=== PATIENT | female | born 1960 | race African-American/Black ===

== ENCOUNTER 2018-09-11 08:56 | Emergency (ER) | payer OTHER ==
[2018-09-11 09:04] VITALS: BP 158/89; PULSE 73; TEMP 98.5; BMI 37.9
--- NOTE | 2018-09-11 09:40 | PDOC ---
History of Present Illness - General Chief Complaint: Puncture Wound Stated Complaint: PAIN Time Seen by Provider: 09/11/18 09:06 History Source: Patient Exam Limitations: No Limitations Past History - Past Medical History Allergies/Adverse Reactions: Allergies Allergy/AdvReac Type Severity Reaction Status Date / Time No Known Allergies Allergy Verified 09/11/18 08:59 Home Medications: Ambulatory Orders Lisinopril [Prinivil -] 40 mg PO DAILY 08/06/12 Omeprazole [Prilosec (RX)] 20 mg PO DAILY 10/26/14 Linaclotide [Linzess] 145 mcg PO DAILY 12/08/14 Amlodipine Besylate [Norvasc -] 5 mg PO DAILY 12/09/14 Hydrochlorothiazide [Hctz -] 12.5 mg PO DAILY 12/09/14 Metoclopramide HCl [Reglan] 5 mg PO DAILY 12/09/14 Metoprolol Succinate [Toprol XL -] 50 mg PO DAILY 12/09/14 Pantoprazole Sodium [Protonix -] 40 mg PO DAILY 12/09/14 Sennosides/Docusate Sodium [Dok Plus Tablet] 1 each PO DAILY 12/09/14 Acetaminophen [Tylenol] 650 mg PO Q4H PRN #20 capsule 10/09/17 Polyethylene Glycol 3350 [Miralax (For Bowel Prep) -] 17 gm PO DAILY #1 bottle 10/09/17 COPD: No Diabetes: Yes (pre) GI Disorders: Yes (COLON POLYPS;GERD) HTN: Yes - Immunization History Immunization Up to Date: Yes - Suicide/Smoking/Psychosocial Hx Smoking Status: No Smoking History: Never smoked Number of Cigarettes Smoked Daily: 0 Information on smoking cessation initiated: No Hx Alcohol Use: No Drug/Substance Use Hx: No Substance Use Type: None *Physical Exam - Vital Signs Last Vital Signs Temp Pulse Resp BP Pulse Ox 98.5 F 73 16 158/89 100 09/11/18 09:00 09/11/18 09:00 09/11/18 09:00 09/11/18 09:00 09/11/18 09:00 - Physical Exam General Appearance: No: Apparent Distress Respiratory/Chest: positive: Lungs Clear, Normal Breath Sounds. negative: Respiratory Distress Cardiovascular: positive: Regular Rhythm, Regular Rate, S1, S2. negative: Murmur Gastrointestinal/Abdominal: positive: Normal Bowel Sounds, Soft. negative: Tender, Distended, Guarding, Rebound Musculoskeletal: negative: CVA Tenderness Extremity: positive: Other (small skin tear plantar surface of L foot, unable to feel any FB, no erythema, no fluctuance) Integumentary: positive: Normal Color Neurologic: positive: Alert, Normal Mood/Affect ED Treatment Course - LABORATORY CBC & Chemistry Diagram: 09/11/18 09:32 09/11/18 09:32 - RADIOLOGY Radiology Studies Ordered: Category Date Time Status FOOT-LEFT [RAD] Stat Radiology 09/11/18 09:13 Ordered Medical Decision Making - Medical Decision Making 57 y/o F hx of HTN, pre-DM, GERD presents with pain along bottom of L foot x 1 week after accidentally stepping on something in bathroom (patient was barefoot) . Also c/o generalized abd pain and 2 episodes of NBNB emesis from yesterday. Denies fever, sob, cp, diarrhea, urinary complaints. Currently not feeling nauseous. Generalized abd pain - current exam unremarkable, but will get labs and reassess ; IV Tylenol for pain L foot FB - L foot xray to r/o possible FB Signed out to ASHUTOSH Langley 09/11/18 09:37 *DC/Admit/Observation/Transfer Diagnosis at time of Disposition: Wound of left foot, Generalized abdominal pain - Referrals - Patient Instructions - Post Discharge Activity
[2018-09-11] MEDS ORDERED: ACETAMINOPHEN 1000 MG/100 ML VIAL (NON FORMULARY) IVPB ONE (09:41)
[2018-09-11 09:42] LABS: BASO % 1.2 % (0-2.0); EOS % 2.5 % (0-4.5); HEMATOCRIT 41.3 % (32.4-45.2); HEMOGLOBIN 14.1 GM/dL (10.7-15.3); LYMPH % 39.5 % (8-40); MCH 27.7 pg (25.7-33.7); MEAN CELL VOLUME 81.3 fl (80-96); MEAN PLT VOLUME 9.2 fl (7.5-11.1); MONO % 8.2 % (3.8-10.2); NEUT % 48.6 % (42.8-82.8); RBC 5.08 M/mm3 (3.60-5.2); RDW 15.5 % (11.6-15.6); WHITE BLOOD COUNT 5.6 K/mm3 (4.0-10.0)
[2018-09-11] MEDS ORDERED: ACETAMINOPHEN 500 MG TABLET (FP) PO ONE (09:43)
[2018-09-11] MEDS ORDERED: ACETAMINOPHEN 325 MG TABLET (FP) ONE (09:49)
[2018-09-11 10:21] LABS: PLATELET COUNT 218 K/MM3 (134-434)
[2018-09-11 10:24] LABS: BILIRUBIN,TOTAL 0.5 mg/dL (0.2-1); BLOOD UREA NITROGEN 11.2 mg/dL (7-18); CALCIUM 9.1 mg/dL (8.5-10.1); POTASSIUM 4.4 mmol/L (3.5-5.1); TOT PROT 7.7 g/dl (6.4-8.2)
[2018-09-11 10:28] LABS: PH,URINE 8.5 (5.0-8.0); URINE APPEARANCE CLEAR; URINE BILIRUBIN NEGATIVE (NEGATIVE); URINE COLOR YELLOW; URINE GLUCOSE (UA) NEGATIVE (NEGATIVE); URINE KETONE NEGATIVE (NEGATIVE); URINE LEUK ESTERASE NEGATIVE (NEGATIVE); URINE NITRITE NEGATIVE (NEGATIVE); URINE PROTEIN NEGATIVE (NEGATIVE); URINE UROBILINOGEN 0.2 mg/dL (0.2-1.0)
--- NOTE | 2018-09-11 10:31 | PDOC ---
*Physical Exam - Vital Signs Last Vital Signs Temp Pulse Resp BP Pulse Ox 98.5 F 73 16 158/89 100 09/11/18 09:00 09/11/18 09:00 09/11/18 09:00 09/11/18 09:00 09/11/18 09:00 - Physical Exam General Appearance: Yes: Nourished, Appropriately Dressed. No: Apparent Distress Gastrointestinal/Abdominal: positive: Normal Bowel Sounds, Tender (diffuse tenderness without focal finding) Musculoskeletal: positive: Normal Inspection. negative: CVA Tenderness Extremity: positive: Normal Capillary Refill, Normal Inspection, Normal Range of Motion Integumentary: positive: Normal Color, Dry, Warm, Other (0.5cm stage 1 pressure ulcer to the L mid plantar foot. No signs of secondary infection) Neurologic: positive: Fully Oriented, Alert, Normal Mood/Affect, Normal Response ED Treatment Course - LABORATORY CBC & Chemistry Diagram: 09/11/18 09:32 09/11/18 09:32 - ADDITIONAL ORDERS Additional order review: Laboratory Results 09/11/18 09/11/18 09:56 09:32 Sodium 140 Potassium 4.4 Chloride 107 Carbon Dioxide 30 Anion Gap 4 L BUN 11.2 Creatinine 1.0 Est GFR (CKD-EPI)AfAm 72.93 Est GFR (CKD-EPI)NonAf 62.93 Random Glucose 107 H Calcium 9.1 Total Bilirubin 0.5 AST 27 ALT 29 Alkaline Phosphatase 83 Total Protein 7.7 Albumin 4.0 Lipase 236 Urine Color Yellow Urine Appearance Clear Urine pH 8.5 H D Ur Specific [place] 1.012 Urine Protein Negative Urine Glucose (UA) Negative Urine Ketones Negative Urine Blood Negative Urine Nitrite Negative Urine Bilirubin Negative Urine Urobilinogen 0.2 Ur Leukocyte Esterase Negative 09/11/18 09:32 RBC 5.08 MCV 81.3 MCHC 34.0 RDW 15.5 MPV 9.2 Neutrophils % 48.6 Lymphocytes % 39.5 Monocytes % 8.2 Eosinophils % 2.5 D Basophils % 1.2 - Medications Given in the ED: ED Medications Discontinued Medications Generic Name Dose Route Start Last Admin Trade Name Freq PRN Reason Stop Dose Admin Acetaminophen 1,000 mg 09/11/18 09:41 09/11/18 10:03 Ofirmev Injection - IVPB 09/11/18 09:42 Not Given ONCE ONE Acetaminophen 1,000 mg 09/11/18 09:43 09/11/18 10:01 Tylenol - PO 09/11/18 09:44 1,000 mg ONCE ONE Administration Medical Decision Making - Medical Decision Making 09/11/18 10:53 Signed out from FT at 09:00 The patient is a 57 y/o F with PMH of HTN, DM (currently not on meds for a normal A1C), constipation presents to the ED with abdominal cramping and foot pain. Pt states that the foot pain started approximately one week ago after stepping on an unknown object while walking barefoot at home. She also notes abdominal pain which started yesterday. She states the pain is crampy in nature and admits to increased gas. States her last bowel movement was this morning and was normal for her A/P: abdominal pain, foot pain Diffuse TTP on abdominal exam with no focal findings Labs and Urine obtained in FT are negative for acute pathology Foot exam shows a 0.5cm round ulcer on the mid foot plantar surface. Does not appear infected at this time X-ray of the L foot does not appear to have any FB's Pain most likely d/t ulcerative lesion X-ray of the abdomen ordered to r/o obstruction. Suspect gas like pain given hx 09/11/18 12:11 X-ray is negative for obstruction/constipation Will dc home with symptomatic treatment and GI f/u Podiatry given for foot ulcer EKG shows no acute abnormalities. Rate 57 BPM, NSR, normal intervals and axis. No acute ST-T wave changes I discussed the physical exam findings, ancillary test results and final diagnoses with the patient. I answered all of the patient's questions. The patient was satisfied with the care received and felt comfortable with the discharge plan and treatment plan. The Patient agrees to follow up with the primary care physician/specialist within 24-72 hours. Return precautions were given. *DC/Admit/Observation/Transfer Diagnosis at time of Disposition: Wound of left foot, Generalized abdominal pain - Discharge Dispostion Disposition: HOME Condition at time of disposition: Stable Decision to Admit order: No - Prescriptions Prescriptions: Mag Hydrox/Al Hydrox/Simeth [Mylanta *Suspension*] 30 ml PO DAILY #1 bottle - Referrals Referrals: Dewayne Trammell [Primary Care Provider] - Ioana Vyas DO [Staff Physician] - Naseem Hutton DPM [Staff Physician] - - Patient Instructions Printed Discharge Instructions: DI for Abdominal Pain-Adult Additional Instructions: You were evaluated for your foot pain and abdominal pain today. Your lab work and x-rays were normal. You may take the mylanta daily to help with your bloating Please follow up with both a stomach doctor and a foot doctor Keep the wound on the foot clean and dry Return to the ER for fever, worsening abdominal pain, vomiting, or if you have any changes in your symptoms - Post Discharge Activity
[2018-09-11] MEDS ORDERED: MAG HYDROX/AL HYDROX/SIMETH -MYLANTA- ORAL SUSPENSION PO ONE (10:47)
[2018-09-11] MEDS ORDERED: MAG HYDROX/AL HYDROX/SIMETH 30 ML UNIT-DOSE CUP ONE (11:11)
--- NOTE | 2018-09-12 10:31 | EKG ---
Test Reason : Blood Pressure : / mmHG Vent. Rate : 057 BPM Atrial Rate : 057 BPM P-R Int : 168 ms QRS Dur : 076 ms QT Int : 410 ms P-R-T Axes : 033 -15 -18 degrees QTc Int : 399 ms SINUS BRADYCARDIA POSSIBLE LEFT ATRIAL ENLARGEMENT BORDERLINE ECG NO PREVIOUS ECGS AVAILABLE Confirmed by PHILLIP TESFAYE, RONALD ([id number]) on 09/12/2018 10:30:35 AM Referred By: Confirmed By:RONALD FISHER MD
== END 2018-09-11 13:34 | disposition home or self-care (01) ==
LOC: JER 08:56
DX: L89.891 Pressure ulcer of other site, stage 1 (principal); R10.84 Generalized abdominal pain; R11.10 Vomiting, unspecified
CPT/HCPCS: 36415; 73630-TC-LT; 74019-TC-FY; 80053; 81003; 83690; 85025; 93005; 93010; 99283-25

== ENCOUNTER 2022-09-22 11:14 | Emergency (ER) | payer OTHER ==
[2022-09-22 11:23] VITALS: BMI 41.9
[2022-09-22 13:32] LABS: ALBUMIN 4.1 g/dl (3.4-5.0); BLOOD UREA NITROGEN 9.5 mg/dL (7-18); CALCIUM 9.5 mg/dL (8.5-10.1)
[2022-09-22 13:35] LABS: CREATININE 0.8 mg/dL (0.55-1.3)
[2022-09-22 13:37] LABS: BILIRUBIN,TOTAL 0.4 mg/dL (0.2-1); TOT PROT 7.7 g/dl (6.4-8.2)
[2022-09-22 13:40] LABS: N-TERMINAL BNP 57.2 pg/ml (5-125)
[2022-09-22] MEDS ORDERED: ACETAMINOPHEN 1000 MG/100 ML BAG IVPB ONE (15:29)
[2022-09-22 15:45] LABS: BASO % 0.9 % (0-2.0); EOS % 1.8 % (0-4.5); HEMATOCRIT 46.9 % (32.4-45.2); HEMOGLOBIN 14.9 GM/dL (10.7-15.3); LYMPH % 46.6 % (8-40); MCH 25.8 pg (25.7-33.7); MCHC 31.8 g/dl (32.0-36.0); MEAN PLT VOLUME 11.4 fl (7.5-11.1); NEUT % 42.7 % (42.8-82.8); PLATELET COUNT 212 10^3/uL (134-434); RDW 15.4 % (11.6-15.6); WHITE BLOOD COUNT 7.8 K/mm3 (4.0-10.0)
[2022-09-22] MEDS ORDERED: ACETAMINOPHEN INJECTION 100 ML IVPB ONE (16:10)
[2022-09-22 16:25] VITALS: RESP 16
[2022-09-22 17:16] VITALS: BP 155/89; PULSE 66; TEMP 98.3
== END 2022-09-22 18:30 | disposition home or self-care (01) ==
LOC: JER 11:14
PROC: 3E033NZ Introduction of Analgesics, Hypnotics, Sedatives into Peripheral Vein, Percutaneous Approach (ICD-10-PCS; principal; 2022-09-22)
DX: R60.9 Edema, unspecified (principal)
CPT/HCPCS: 36415; 71045-TC-FY; 80053; 83880; 85025; 93970-TC; 99285-25

== ENCOUNTER 2024-01-07 10:50 | Emergency (ER) | payer OTHER ==
[2024-01-07 11:19] VITALS: BMI 41.9
[2024-01-07 12:35] LABS: BASO % 0.5 % (0-2.0); EOS % 1.2 % (0-4.5); HEMATOCRIT 43.2 % (32.4-45.2); HEMOGLOBIN 14.3 GM/dL (10.7-15.3); LYMPH % 41.5 % (8-40); MCH 27.5 pg (25.7-33.7); MCHC 33.1 g/dl (32.0-36.0); MEAN CELL VOLUME 83.1 fl (80-96); MONO % 8.5 % (3.8-10.2); NEUT % 48.3 % (42.8-82.8); PLATELET COUNT 243 10^3/uL (134-434); RDW 15.5 % (11.6-15.6); WHITE BLOOD COUNT 10.1 K/mm3 (4.0-10.0)
[2024-01-07 12:41] LABS: INR 1.02 (0.83-1.09); PROTHROMBIN TIME (PATIENT) 11.7 SEC (9.7-13.0)
[2024-01-07 12:44] LABS: ACTIVATED PTT 31.6 SECONDS (25.2-36.5)
[2024-01-07] MEDS ORDERED: ACETAMINOPHEN INJECTION 100 ML ONE (12:47)
[2024-01-07] MEDS: ACETAMINOPHEN 1000 MG/100 ML BAG IVPB ONE (12:51)
[2024-01-07 12:55] LABS: POTASSIUM 3.7 mmol/L (3.5-5.1)
[2024-01-07 12:57] LABS: ALBUMIN 3.6 g/dl (3.4-5.0); CALCIUM 9.8 mg/dL (8.5-10.1)
[2024-01-07 12:58] LABS: BLOOD UREA NITROGEN 23.1 mg/dL (7-18)
[2024-01-07 12:59] LABS: PHOSPHOROUS 4.5 mg/dL (2.5-4.9)
[2024-01-07 13:02] LABS: BILIRUBIN,TOTAL 0.5 mg/dL (0.2-1); TOT PROT 7.4 g/dl (6.4-8.2)
[2024-01-07 14:02] LABS: PH,URINE 5.5 (5.0-8.0); URINE APPEARANCE CLEAR; URINE BILIRUBIN NEGATIVE (NEGATIVE); URINE COLOR YELLOW; URINE GLUCOSE (UA) NEGATIVE (NEGATIVE); URINE KETONE NEGATIVE (NEGATIVE); URINE LEUK ESTERASE NEGATIVE (NEGATIVE); URINE NITRITE NEGATIVE (NEGATIVE); URINE PROTEIN NEGATIVE (NEGATIVE); URINE UROBILINOGEN 0.2 mg/dL (0.2-1.0)
[2024-01-07] MEDS ORDERED: amLODIPine BESYLATE 2.5 MG TABLET (FP) ONE (14:19)
[2024-01-07] MEDS: amLODIPine BESYLATE 2.5 MG TABLET (FP) PO ONE (14:26)
[2024-01-07 14:28] VITALS: BP 140/80; PULSE 76; RESP 19; TEMP 97.9
== END 2024-01-07 14:39 | disposition home or self-care (01) ==
LOC: JER 10:50
PROC: 3E033NZ Introduction of Analgesics, Hypnotics, Sedatives into Peripheral Vein, Percutaneous Approach (ICD-10-PCS; principal; 2024-01-07)
DX: G44.209 Tension-type headache, unspecified, not intractable (principal); I10 Essential (primary) hypertension; R42 Dizziness and giddiness; R53.1 Weakness
CPT/HCPCS: 36415; 80053; 81003; 82010; 83735; 84100; 84484; 85025; 85610; 85730; 87086; 93005; 93010; 99284-25; J0131